=== PATIENT | male | born 1995 | race Two or more races ===

== ENCOUNTER 2017-01-14 02:04 | Emergency (ER) | payer MEDICAID ==
[~2017-01-14] VITALS: Ht 157.5 cm; Wt 102.1 kg
[~2017-01-14 02:04] MED LIST: BUDE0.253 NEB; DOXY-216 PO; DULO60CA PO; GABA-497 PO; HYDR-4663 PO; METO25TA5 PO; POTA10SO11 PO; SACC250C PO
[2017-01-14 02:53] LABS: Basophils # (auto) 0.1 uL; Basophils % (auto) 0.8 % (0.0-2.0); DEFINITIVE VIEW TRANSMISSION; Eosinophils # (auto) 0.2 uL; Eosinophils % (auto) 1.6 % (0.0-7.0); Hematocrit 44.7 % (41.0-53.0); Hemoglobin 14.8 g/dL (13.5-17.5); Lymphocytes # (auto) 2.8 uL; Lymphocytes % (auto) 25.2 % (10.0-50.0); Mean Corpuscular Hgb Conc. 33.1 g/dL (32.0-36.0); Mean Corpuscular Volume 75.7 fL (80.0-100.0); Monocytes # (auto) 0.4 uL; Neutrophils # (auto) 7.5 uL; Neutrophils % (auto) 68.4 % (37.0-80.0); Platelet Count (auto) 398 10^3/uL (140-450); Red Cell Distribution Width 17.6 % (11.6-16.0)
[2017-01-14 03:07] LABS: Partial Thromboplastin Time 28.5 sec (22.64-33.71); Prothrombin Time 10.9 sec (9.37-12.3)
[2017-01-14 03:11] LABS: Albumin 3.7 g/dL (3.4-5.0); BUN/Creatinine Ratio 43.5; Calcium 8.9 mg/dL (8.5-10.1); Magnesium 2.1 mg/dL (1.6-2.6); Potassium 4.1 mmol/L (3.5-5.1)
[2017-01-14 03:14] LABS: Bilirubin, Total 0.3 mg/dL (0.2-1.0); Total Protein 8.5 g/dL (6.4-8.2)
[2017-01-14 03:22] LABS: B-Type Natriuretic Peptide 7.6 pg/mL (0-100)
[2017-01-14 03:23] LABS: Temperature: 21.5 C (20.0-25.0)
[2017-01-14 04:40] VITALS: BP 87/51
[2017-01-14] MEDS ORDERED: ONDANSETRON HCL 4 MG/2 ML VIAL IV ONE (04:45)
[2017-01-14] MEDS ORDERED: MORPHINE SULFATE 4 MG/ML SYRG IV ONE (04:45)
== END 2017-01-14 06:16 | disposition home or self-care (01) ==
LOC: EDBD 02:04 → ER 02:14
DX: J06.9 Acute upper respiratory infection, unspecified (principal); R07.89 Other chest pain; G71.0 Muscular dystrophy; Z93.0 Tracheostomy status; I10 Essential (primary) hypertension; Z79.899 Other long term (current) drug therapy
CPT/HCPCS: 36415; 71010; 80053; 83605; 83735; 83880; 84443; 84484; 85025; 85610; 85730; 87070; 87077; 87186; 87205; 93005; 94002; 94761; 96374; 96375; 99285; J2270; J2405

== ENCOUNTER 2017-03-30 15:42 | Emergency (ER) | payer MEDICAID, OTHER ==
[~2017-03-30] VITALS: Ht 162.6 cm; Wt 90.7 kg
[~2017-03-30 15:42] MED LIST changes: +LEVO750T2 PO
[2017-03-30] MEDS ORDERED: SODIUM CHLORIDE 0.9% 1,000 ML IV ONE (17:11)
[2017-03-30 17:54] LABS: Basophils # (auto) 0.1 uL; Basophils % (auto) 0.4 % (0.0-2.0); CONDITION Y; DEFINITIVE SEE PRINTOUT; Eosinophils # (auto) 0.1 uL; Eosinophils % (auto) 1.1 % (0.0-7.0); Hematocrit 39.6 % (41.0-53.0); Lymphocytes # (auto) 1.5 uL; Lymphocytes % (auto) 11.9 % (10.0-50.0); Mean Corpuscular Hemoglobin 24.9 pg (28.0-32.0); Mean Corpuscular Hgb Conc. 32.9 g/dL (32.0-36.0); Mean Corpuscular Volume 75.6 fL (80.0-100.0); Monocytes # (auto) 0.5 uL; Monocytes % (auto) 3.8 % (0.0-12.0); Neutrophils # (auto) 10.5 uL; Neutrophils % (auto) 82.8 % (37.0-80.0); Platelet Count (auto) 368 10^3/uL (140-450); Red Cell Distribution Width 14.8 % (11.6-16.0); White Blood Cell 12.6 10^3/uL (4.4-10.8)
[2017-03-30 18:36] LABS: Alkaline Phosphatase 114 U/L (45-117); Anion Gap 15 (5-15); Aspartate Aminotransferase 21 U/L (15-37); Blood Urea Nitrogen 7 mg/dL (7-18); Calcium 8.8 mg/dL (8.5-10.1); Carbon Dioxide 17 mmol/L (21-32); Chloride 106 mmol/L (98-107); Glucose 69 mg/dL (74-106); Potassium 3.5 mmol/L (3.5-5.1); Sodium 138 mmol/L (136-145)
[2017-03-30 18:37] LABS: Albumin 3.6 g/dL (3.4-5.0); Bilirubin, Total 0.6 mg/dL (0.2-1.0); Magnesium 2.3 mg/dL (1.6-2.6)
[2017-03-30 18:41] LABS: GFR African American 1730 mL/min; GFR Non-African American 1429 mL/min
[2017-03-30] MEDS ORDERED: ACETAMINOPHEN 325 MG TAB PO ONE (18:45)
[2017-03-30] MEDS ORDERED: ALBUTEROL SULF 2.5 MG/0.5ML(0.5%) NEB SOLN NEB ONE (21:00)
[2017-03-30 22:30] VITALS: BP 137/86
== END 2017-03-30 23:02 | disposition home or self-care (01) ==
LOC: EDBD 15:42 → ER 15:45
DX: G71.0 Muscular dystrophy (principal); R06.02 Shortness of breath; R07.89 Other chest pain; Z90.49 Acquired absence of other specified parts of digestive tract; I10 Essential (primary) hypertension
CPT/HCPCS: 36415; 71010; 80053; 83735; 85025; 87070; 87077; 87186; 87205; 94002; 94640; 94761; 96360

== ENCOUNTER 2017-04-03 17:22 | Emergency (ER) | payer MEDICAID ==
[~2017-04-03] VITALS: Ht 170.2 cm; Wt 99.8 kg
[2017-04-03] MEDS ORDERED: ALBUTEROL SULF 2.5 MG/0.5ML(0.5%) NEB SOLN ONE (17:28)
[2017-04-03] MEDS ORDERED: IPRATROPIUM BROM 0.5 MG/2.5ML INH SOL ONE (17:28)
[2017-04-03] MEDS ORDERED: IPRATROPIUM BROM 0.5 MG/2.5ML INH SOL NEB ONE (17:30)
[2017-04-03] MEDS ORDERED: ALBUTEROL SULF 2.5 MG/0.5ML(0.5%) NEB SOLN NEB ONE (17:30)
[2017-04-03] MEDS ORDERED: SODIUM CHLORIDE 0.9% 1,000 ML IV ONE (19:30)
[2017-04-03] MEDS ORDERED: ONDANSETRON HCL 4 MG/2 ML VIAL IV ONE (19:30)
[2017-04-03] MEDS ORDERED: HYDROmorphone HCL 2 MG/ML VL IV ONE (19:30)
[2017-04-03] MEDS ORDERED: diphenhdrAMINE HCL 50 MG/1 ML VL IV ONE (20:15)
[2017-04-03 20:32] LABS: Basophils # (auto) 0.1 uL; Basophils % (auto) 0.6 % (0.0-2.0); CONDITION Y; DEFINITIVE SEE PRINTOUT; Eosinophils # (auto) 0.2 uL; Eosinophils % (auto) 1.5 % (0.0-7.0); Hematocrit 38.4 % (41.0-53.0); Hemoglobin 12.6 g/dL (13.5-17.5); Lymphocytes # (auto) 1.9 uL; Lymphocytes % (auto) 14.1 % (10.0-50.0); Mean Corpuscular Hemoglobin 24.6 pg (28.0-32.0); Mean Corpuscular Volume 74.8 fL (80.0-100.0); Monocytes # (auto) 0.4 uL; Monocytes % (auto) 3.1 % (0.0-12.0); Neutrophils # (auto) 10.6 uL; Neutrophils % (auto) 80.7 % (37.0-80.0); Platelet Count (auto) 377 10^3/uL (140-450); Red Cell Distribution Width 15.3 % (11.6-16.0); White Blood Cell 13.1 10^3/uL (4.4-10.8)
[2017-04-03 20:52] LABS: Albumin 3.5 g/dL (3.4-5.0); Alkaline Phosphatase 100 U/L (45-117); Anion Gap 11 (5-15); Aspartate Aminotransferase 24 U/L (15-37); Bilirubin, Total 0.2 mg/dL (0.2-1.0); Blood Urea Nitrogen 6 mg/dL (7-18); Carbon Dioxide 22 mmol/L (21-32); Chloride 106 mmol/L (98-107); Glucose 76 mg/dL (74-106); Potassium 4.1 mmol/L (3.5-5.1); Sodium 139 mmol/L (136-145); Total Protein 7.3 g/dL (6.4-8.2)
[2017-04-03 20:55] LABS: GFR African American 1730 mL/min; GFR Non-African American 1429 mL/min
[2017-04-04 01:21] VITALS: BP 120/67
[2017-04-04] MEDS ORDERED: HYDROmorphone HCL 2 MG/ML VL IV ONE (01:45)
[2017-04-04 04:35] VITALS: BP 127/60
== END 2017-04-04 00:41 | disposition home or self-care (01) ==
LOC: EDBD 17:22 → ER 17:25
DX: R07.89 Other chest pain (principal); J06.9 Acute upper respiratory infection, unspecified; I10 Essential (primary) hypertension; G71.0 Muscular dystrophy
CPT/HCPCS: 36415; 71010; 80053; 85025; 94002; 94640; 96361; 96374; 96375; 96376; 99285; J1170; J1200; J2405

== ENCOUNTER 2017-09-13 09:19 | Inpatient (IN) | payer MEDICAID ==
[2017-09-13] VITALS (7 sets, daily range): BP systolic 78–121; BP diastolic 44–84
[~2017-09-13] VITALS: Ht 165.1 cm; Wt 108.7 kg
[~2017-09-13 09:19] MED LIST changes: -GABA-497 PO; +GABA300C10 PO; -HYDR-4663 PO; +HYDR-4683 PO
[2017-09-13 09:54] LABS: Eosinophils # (auto) 0.1 uL; Hematocrit 48.2 % (41.0-53.0); Monocytes # (auto) 1.4 uL; Monocytes % (auto) 11.5 % (0.0-12.0); Nucleated Red Blood Cells % 0.2 %; Red Cell Distribution Width 15.6 % (11.8-14.3)
[2017-09-13 09:56] LABS: Basophils # (auto) 0.1 uL; Basophils % (auto) 0.7 % (0.0-2.0); Eosinophils % (auto) 0.7 % (0.0-7.0); Hemoglobin 15.5 g/dL (13.5-17.5); Lymphocytes # (auto) 2.4 uL; Lymphocytes % (auto) 19.5 % (10.0-50.0); Mean Corpuscular Hemoglobin 23.2 pg (28.0-32.0); Mean Corpuscular Hgb Conc. 32.1 g/dL (32.0-36.0); Mean Corpuscular Volume 72.4 fL (80.0-100.0); Neutrophils # (auto) 8.2 uL; Neutrophils % (auto) 67.6 % (37.0-80.0); Platelet Count (auto) 450 10^3/uL (140-450); Red Blood Cells 6.65 10^6/uL (4.5-5.90); White Blood Cell 12.2 10^3/uL (4.4-10.8)
[2017-09-13 10:23] LABS: Albumin 3.7 g/dL (3.4-5.0); BUN/Creatinine Ratio 13.8; Bilirubin, Total 0.7 mg/dL (0.2-1.0); Calcium 9.2 mg/dL (8.5-10.1); Total Protein 8.2 g/dL (6.4-8.2)
[2017-09-13 10:25] LABS: Potassium 2.2 mmol/L (3.5-5.1)
[2017-09-13] MEDS ORDERED: SODIUM CHLORIDE 0.9% 1,000 ML IV ONE (10:42)
[2017-09-13] MEDS ORDERED: MORPHINE SULFATE 4 MG/ML SYR/VIAL IV ONE (10:45)
[2017-09-13] MEDS ORDERED: ONDANSETRON HCL 4 MG/2 ML VIAL IV ONE (10:45)
[2017-09-13] MEDS ORDERED: POTASSIUM CHL 10% (20 MEQ/15ML) 15ml ORAL SOLN PO ONE (10:45)
[2017-09-13] MEDS ORDERED: LACTULOSE 20Gm/30ML SOLN PO PRN (15:30)
[2017-09-13] MEDS ORDERED: NITROGLYCERIN 0.4 MG SL TAB SL PRN (15:30)
[2017-09-13] MEDS ORDERED: MORPHINE SULFATE 4 MG/ML SYR/VIAL IV PRN (15:30)
[2017-09-13] MEDS ORDERED: TEMAZEPAM 15 MG CAP PO PRN (15:30)
[2017-09-13] MEDS ORDERED: OSELTAMIVIR 75 MG CAP PO ONE (15:30)
[2017-09-13] MEDS ORDERED: ACETAMINOPHEN 500 MG TAB PO PRN (15:30)
[2017-09-13] MEDS ORDERED: LORazepam 0.5 MG TAB PO PRN (15:30)
[2017-09-13] MEDS ORDERED: AZITHROMYCIN 500MG/ 250ML 250 ML IV SCH ×2 (15:45→16:00)
[2017-09-13] MEDS: ENOXAPARIN SOD 40 MG/0.4 ML SYRINGE SC SCH (17:01)
[2017-09-13] MEDS: POTASSIUM CHL 20MEQ/100ML 100 ML IV SCH ×3 (17:01→21:18)
[2017-09-13] MEDS: cefTRIAXone 1GM/10ml IVPUSH 10 ML IV SCH (17:01)
[2017-09-13] MEDS: SOD CHL 0.9%/ KCL 40MEQ 1,000 ML IV SCH (17:01)
[2017-09-13] MEDS: AZITHROMYCIN 500MG/ 250ML 250 ML IV SCH (17:02)
[2017-09-13] MEDS: MORPHINE SULFATE 4 MG/ML SYR/VIAL IV PRN ×2 (17:19→22:31)
[2017-09-13 18:22] LABS: Urine Bacteria NONE SEEN /hpf (None Seen); Urine Blood Negative /uL (Negative); Urine Mucus FEW (None Seen); Urine Specific Gravity 1.015 (1.001-1.035); Urine WBC 1 /hpf (0 - 3)
[2017-09-13] MEDS: ALBUTEROL SULF 2.5 MG/0.5ML(0.5%) NEB SOLN NEB SCH (18:40)
[2017-09-13] MEDS: OSELTAMIVIR 75 MG CAP PO SCH (20:21)
[2017-09-13] MEDS: ALBUTEROL SULF 2.5 MG/0.5ML(0.5%) NEB SOLN NEB PRN (22:41)
[2017-09-14] VITALS (12 sets, daily range): BP systolic 81–135; BP diastolic 35–92
[2017-09-14] MEDS: POTASSIUM CHL 20MEQ/100ML 100 ML IV SCH (00:15)
[2017-09-14] MEDS: ALBUTEROL SULF 2.5 MG/0.5ML(0.5%) NEB SOLN NEB SCH ×4 (00:34→18:00)
[2017-09-14] MEDS: SOD CHL 0.9%/ KCL 40MEQ 1,000 ML IV SCH ×2 (05:13→18:33)
[2017-09-14] MEDS: MORPHINE SULFATE 4 MG/ML SYR/VIAL IV PRN ×4 (05:14→21:23)
[2017-09-14 06:00] LABS: Basophils # (auto) 0.1 uL; Eosinophils # (auto) 0.2 uL; Hemoglobin 11.4 g/dL (13.5-17.5); Mean Corpuscular Hemoglobin 23.2 pg (28.0-32.0); Monocytes # (auto) 0.7 uL; Neutrophils # (auto) 3.3 uL; Nucleated Red Blood Cells % 0.3 %
[2017-09-14 06:05] LABS: Basophils % (auto) 0.8 % (0.0-2.0); Eosinophils % (auto) 2.9 % (0.0-7.0); Lymphocytes # (auto) 2.5 uL; Lymphocytes % (auto) 36.7 % (10.0-50.0); Mean Corpuscular Hgb Conc. 32.7 g/dL (32.0-36.0); Monocytes % (auto) 10.1 % (0.0-12.0); Neutrophils % (auto) 49.5 % (37.0-80.0); Platelet Count (auto) 379 10^3/uL (140-450); Red Blood Cells 4.93 10^6/uL (4.5-5.90); Red Cell Distribution Width 15.2 % (11.8-14.3); White Blood Cell 6.7 10^3/uL (4.4-10.8)
[2017-09-14 07:40] LABS: Alanine Aminotransferase 32 U/L (16-61); Albumin 2.8 g/dL (3.4-5.0); Alkaline Phosphatase 82 U/L (45-117); Anion Gap 11 (5-15); Aspartate Aminotransferase 28 U/L (15-37); Bilirubin, Total 0.5 mg/dL (0.2-1.0); Blood Urea Nitrogen < 1 mg/dL (7-18); Calcium 7.8 mg/dL (8.5-10.1); Carbon Dioxide 20 mmol/L (21-32); Chloride 110 mmol/L (98-107); Glucose 78 mg/dL (74-106); Sodium 141 mmol/L (136-145); Total Protein 5.7 g/dL (6.4-8.2)
[2017-09-14 08:00] LABS: GFR African American 121 mL/min; GFR Non-African American 100 mL/min
[2017-09-14] MEDS: AZITHROMYCIN 500MG/ 250ML 250 ML IV SCH ×2 (10:00→11:00)
[2017-09-14] MEDS: OSELTAMIVIR 75 MG CAP PO SCH ×2 (10:00→22:00)
[2017-09-14] MEDS: cefTRIAXone 1GM/10ml IVPUSH 10 ML IV SCH (10:00)
[2017-09-14] MEDS: ENOXAPARIN SOD 40 MG/0.4 ML SYRINGE SC SCH (10:00)
[2017-09-14] MEDS: PROMETHAZINE HCL 25 MG/ML 1ML IV PRN ×2 (10:22→17:14)
[2017-09-15] VITALS (11 sets, daily range): BP systolic 82–128; BP diastolic 26–74
[2017-09-15] MEDS: ALBUTEROL SULF 2.5 MG/0.5ML(0.5%) NEB SOLN NEB SCH ×3 (06:00→19:13)
[2017-09-15] MEDS: SOD CHL 0.9%/ KCL 40MEQ 1,000 ML IV SCH (07:36)
[2017-09-15] MEDS: cefTRIAXone 1GM/10ml IVPUSH 10 ML IV SCH (09:05)
[2017-09-15] MEDS: ENOXAPARIN SOD 40 MG/0.4 ML SYRINGE SC SCH ×2 (09:55→09:58)
[2017-09-15] MEDS: AZITHROMYCIN 500MG/ 250ML 250 ML IV SCH (10:45)
[2017-09-15] MEDS: MORPHINE SULFATE 4 MG/ML SYR/VIAL IV PRN ×2 (11:14→20:25)
[2017-09-15] MEDS: PROMETHAZINE HCL 25 MG/ML 1ML IV PRN (20:25)
[2017-09-16] VITALS (12 sets, daily range): BP systolic 105–160; BP diastolic 47–93
[2017-09-16] MEDS: SOD CHL 0.9%/ KCL 40MEQ 1,000 ML IV SCH ×2 (00:25→15:18)
[2017-09-16] MEDS: ALBUTEROL SULF 2.5 MG/0.5ML(0.5%) NEB SOLN NEB SCH ×5 (00:34→22:00)
[2017-09-16] MEDS: MORPHINE SULFATE 4 MG/ML SYR/VIAL IV PRN ×4 (01:52→20:49)
[2017-09-16] MEDS: ALBUTEROL SULF 2.5 MG/0.5ML(0.5%) NEB SOLN NEB PRN (04:03)
[2017-09-16] MEDS: cefTRIAXone 1GM/10ml IVPUSH 10 ML IV SCH (09:46)
[2017-09-16] MEDS: AZITHROMYCIN 500MG/ 250ML 250 ML IV SCH (09:46)
[2017-09-16] MEDS: ENOXAPARIN SOD 40 MG/0.4 ML SYRINGE SC SCH (09:47)
[2017-09-16] MEDS: ACETYLCYSTEINE 20%(200MG/ML) SOL 4ML NEB SCH ×2 (18:30→22:00)
[2017-09-16] MEDS: BUDESONIDE (INHALATION) 0.5 MG/2 ML NEB NEB SCH (22:00)
[2017-09-17] VITALS (9 sets, daily range): BP systolic 104–148; BP diastolic 58–94
[2017-09-17] MEDS: SOD CHL 0.9%/ KCL 40MEQ 1,000 ML IV SCH (04:41)
[2017-09-17] MEDS: MORPHINE SULFATE 4 MG/ML SYR/VIAL IV PRN ×3 (04:42→17:08)
[2017-09-17] MEDS: ACETYLCYSTEINE 20%(200MG/ML) SOL 4ML NEB SCH ×4 (06:42→22:27)
[2017-09-17] MEDS: ALBUTEROL SULF 2.5 MG/0.5ML(0.5%) NEB SOLN NEB SCH ×4 (06:42→22:27)
[2017-09-17 08:15] LABS: Basophils # (auto) 0.1 uL; Eosinophils # (auto) 0.4 uL; Hemoglobin 11.7 g/dL (13.5-17.5); Monocytes # (auto) 0.5 uL; Neutrophils # (auto) 3.7 uL
[2017-09-17 08:17] LABS: Eosinophils % (auto) 5.9 % (0.0-7.0); Hematocrit 36.6 % (41.0-53.0); Lymphocytes # (auto) 2.3 uL; Lymphocytes % (auto) 33.1 % (10.0-50.0); Mean Corpuscular Hemoglobin 23.1 pg (28.0-32.0); Mean Corpuscular Volume 72.4 fL (80.0-100.0); Monocytes % (auto) 6.5 % (0.0-12.0); Neutrophils % (auto) 53.5 % (37.0-80.0); Nucleated Red Blood Cells % 0.1 %; Platelet Count (auto) 334 10^3/uL (140-450); Red Blood Cells 5.06 10^6/uL (4.5-5.90); Red Cell Distribution Width 15.5 % (11.8-14.3)
[2017-09-17 08:25] LABS: Alanine Aminotransferase 31 U/L (16-61); Anion Gap 8 (5-15); Aspartate Aminotransferase 17 U/L (15-37); BUN/Creatinine Ratio 46.7; Blood Urea Nitrogen 7 mg/dL (7-18); Calcium 8.7 mg/dL (8.5-10.1); Carbon Dioxide 24 mmol/L (21-32); Chloride 105 mmol/L (98-107); GFR African American 1083 mL/min; GFR Non-African American 895 mL/min; Glucose 91 mg/dL (74-106); Potassium 4.2 mmol/L (3.5-5.1); Sodium 137 mmol/L (136-145)
[2017-09-17 08:28] LABS: Alkaline Phosphatase 85 U/L (45-117); Bilirubin, Total 0.2 mg/dL (0.2-1.0); Total Protein 6.3 g/dL (6.4-8.2)
[2017-09-17] MEDS: ENOXAPARIN SOD 40 MG/0.4 ML SYRINGE SC SCH ×2 (10:00→10:26)
[2017-09-17] MEDS: cefTRIAXone 1GM/10ml IVPUSH 10 ML IV SCH (10:25)
[2017-09-17] MEDS: BUDESONIDE (INHALATION) 0.5 MG/2 ML NEB NEB SCH ×2 (10:26→19:40)
[2017-09-17] MEDS: AZITHROMYCIN 500MG/ 250ML 250 ML IV SCH (10:26)
[2017-09-17 12:36] LABS: Basophils # (auto) 0.1 uL; Basophils % (auto) 1.1 % (0.0-2.0); Eosinophils # (auto) 0.5 uL; Eosinophils % (auto) 6.9 % (0.0-7.0); Lymphocytes # (auto) 2.2 uL; Monocytes # (auto) 0.3 uL
[2017-09-17 12:37] LABS: Hematocrit 38.6 % (41.0-53.0); Hemoglobin 12.4 g/dL (13.5-17.5); Lymphocytes % (auto) 33.5 % (10.0-50.0); Mean Corpuscular Hemoglobin 23.2 pg (28.0-32.0); Mean Corpuscular Volume 72.4 fL (80.0-100.0); Monocytes % (auto) 4.7 % (0.0-12.0); Neutrophils # (auto) 3.6 uL; Neutrophils % (auto) 53.8 % (37.0-80.0); Nucleated Red Blood Cells % 0.1 %; Platelet Count (auto) 363 10^3/uL (140-450); Red Blood Cells 5.33 10^6/uL (4.5-5.90); Red Cell Distribution Width 15.3 % (11.8-14.3); White Blood Cell 6.7 10^3/uL (4.4-10.8)
[2017-09-17 12:52] LABS: Anion Gap 7 (5-15); Blood Urea Nitrogen 5 mg/dL (7-18); Calcium 8.7 mg/dL (8.5-10.1); Carbon Dioxide 27 mmol/L (21-32); Chloride 105 mmol/L (98-107); Glucose 118 mg/dL (74-106); Potassium 3.9 mmol/L (3.5-5.1); Sodium 139 mmol/L (136-145)
[2017-09-17 13:11] LABS: GFR African American 1083 mL/min; GFR Non-African American 895 mL/min
[2017-09-17] MEDS: PRO-STAT 64 30ML PO SCH (18:00)
[2017-09-18] MEDS: MORPHINE SULFATE 4 MG/ML SYR/VIAL IV PRN ×6 (00:01→23:02)
[2017-09-18] MEDS: ALBUTEROL SULF 2.5 MG/0.5ML(0.5%) NEB SOLN NEB SCH ×6 (02:00→22:19)
[2017-09-18 05:00] VITALS: BP 107/56
[2017-09-18] MEDS: ACETYLCYSTEINE 20%(200MG/ML) SOL 4ML NEB SCH ×6 (06:00→22:19)
[2017-09-18] MEDS: BUDESONIDE (INHALATION) 0.5 MG/2 ML NEB NEB SCH ×2 (06:35→22:19)
[2017-09-18] MEDS: ENOXAPARIN SOD 40 MG/0.4 ML SYRINGE SC SCH (08:46)
[2017-09-18] MEDS: cefTRIAXone 1GM/10ml IVPUSH 10 ML IV SCH (08:46)
[2017-09-18] MEDS: AZITHROMYCIN 500MG/ 250ML 250 ML IV SCH (08:46)
[2017-09-18] MEDS: PRO-STAT 64 30ML PO SCH ×2 (08:47→18:06)
[2017-09-18 09:29] VITALS: BP 126/75
[2017-09-18 12:56] VITALS: BP 123/82
[2017-09-18 16:43] VITALS: BP 119/83
[2017-09-18] MEDS: MEROPENEM 1gm/20ml IVPUSH 20 ML IV SCH ×2 (17:15→22:00)
[2017-09-18] MEDS: PROMETHAZINE HCL 25 MG/ML 1ML IV PRN (20:07)
[2017-09-18 22:00] VITALS: BP 148/69
[2017-09-19] MEDS: ACETYLCYSTEINE 20%(200MG/ML) SOL 4ML NEB SCH ×6 (02:17→22:17)
[2017-09-19] MEDS: ALBUTEROL SULF 2.5 MG/0.5ML(0.5%) NEB SOLN NEB SCH ×6 (02:17→22:17)
[2017-09-19] MEDS: MORPHINE SULFATE 4 MG/ML SYR/VIAL IV PRN ×4 (04:57→19:53)
[2017-09-19 05:00] VITALS: BP 100/65
[2017-09-19] MEDS: MEROPENEM 1gm/20ml IVPUSH 20 ML IV SCH ×3 (07:55→22:17)
[2017-09-19] MEDS: ENOXAPARIN SOD 40 MG/0.4 ML SYRINGE SC SCH (07:56)
[2017-09-19] MEDS: PRO-STAT 64 30ML PO SCH ×2 (07:56→18:00)
[2017-09-19] MEDS: PROMETHAZINE HCL 25 MG/ML 1ML IV PRN ×2 (08:10→16:05)
[2017-09-19 09:00] VITALS: BP 146/88
[2017-09-19] MEDS: BUDESONIDE (INHALATION) 0.5 MG/2 ML NEB NEB SCH ×2 (10:32→22:17)
[2017-09-19 13:00] VITALS: BP 120/73
[2017-09-19 17:55] VITALS: BP 111/73
[2017-09-19 22:00] VITALS: BP 121/74
[2017-09-19] MEDS: ASCORBIC ACID 500 MG TAB PO SCH (22:17)
[2017-09-20] MEDS: MORPHINE SULFATE 4 MG/ML SYR/VIAL IV PRN ×5 (00:03→18:41)
[2017-09-20] MEDS: ALBUTEROL SULF 2.5 MG/0.5ML(0.5%) NEB SOLN NEB SCH ×6 (02:07→22:00)
[2017-09-20] MEDS: ACETYLCYSTEINE 20%(200MG/ML) SOL 4ML NEB SCH ×6 (02:07→21:59)
[2017-09-20 05:00] VITALS: BP 120/78
[2017-09-20] MEDS: MEROPENEM 1gm/20ml IVPUSH 20 ML IV SCH ×3 (06:36→22:00)
[2017-09-20] MEDS: PROMETHAZINE HCL 25 MG/ML 1ML IV PRN ×2 (06:49→14:02)
[2017-09-20] MEDS: BUDESONIDE (INHALATION) 0.5 MG/2 ML NEB NEB SCH ×2 (07:25→21:59)
[2017-09-20 08:43] VITALS: BP 145/99
[2017-09-20] MEDS: ENOXAPARIN SOD 40 MG/0.4 ML SYRINGE SC SCH (10:00)
[2017-09-20] MEDS: PRO-STAT 64 30ML PO SCH ×2 (10:27→18:00)
[2017-09-20] MEDS: ASCORBIC ACID 500 MG TAB PO SCH ×2 (10:27→22:18)
[2017-09-20] MEDS: MULTIPLE VITAMINS W/ MINERALS TAB PO SCH (10:27)
[2017-09-20] MEDS ORDERED: GABA300C10 PO (11:48)
[2017-09-20] MEDS ORDERED: METO25TA5 PO (11:48)
[2017-09-20] MEDS ORDERED: POTA10TA34 PO (11:48)
[2017-09-20] MEDS ORDERED: HYDR-4683 PO (11:48)
[2017-09-20] MEDS ORDERED: DOXY100C2 PO (11:48)
[2017-09-20 11:53] VITALS: BP 121/80
[2017-09-20 16:40] VITALS: BP 111/76
[2017-09-20 20:00] VITALS: BP 103/48
[2017-09-20 22:00] VITALS: BP 103/48
[2017-09-21] VITALS (7 sets, daily range): BP systolic 107–118; BP diastolic 61–79
[2017-09-21] MEDS ORDERED: GENTAMICIN IV ONE (00:15)
[2017-09-21] MEDS: ALBUTEROL SULF 2.5 MG/0.5ML(0.5%) NEB SOLN NEB SCH ×6 (02:45→22:39)
[2017-09-21] MEDS: ACETYLCYSTEINE 20%(200MG/ML) SOL 4ML NEB SCH ×6 (02:45→22:40)
[2017-09-21] MEDS: MORPHINE SULFATE 4 MG/ML SYR/VIAL IV PRN ×5 (02:47→21:56)
[2017-09-21 05:25] LABS: Basophils # (auto) 0.1 uL; Basophils % (auto) 0.9 % (0.0-2.0); Hemoglobin 12.1 g/dL (13.5-17.5); Lymphocytes # (auto) 1.6 uL; Neutrophils # (auto) 5.6 uL
[2017-09-21 05:27] LABS: Eosinophils # (auto) 0.1 uL; Eosinophils % (auto) 1.6 % (0.0-7.0); Hematocrit 37.8 % (41.0-53.0); Lymphocytes % (auto) 20.6 % (10.0-50.0); Mean Corpuscular Hemoglobin 23.7 pg (28.0-32.0); Mean Corpuscular Hgb Conc. 32.1 g/dL (32.0-36.0); Monocytes # (auto) 0.4 uL; Monocytes % (auto) 5.6 % (0.0-12.0); Neutrophils % (auto) 71.3 % (37.0-80.0); Nucleated Red Blood Cells % 0.3 %; Red Blood Cells 5.11 10^6/uL (4.5-5.90); Red Cell Distribution Width 16.1 % (11.8-14.3); White Blood Cell 7.9 10^3/uL (4.4-10.8)
[2017-09-21 05:29] LABS: Platelet Count (auto) 214 10^3/uL (140-450)
[2017-09-21] MEDS: BUDESONIDE (INHALATION) 0.5 MG/2 ML NEB NEB SCH ×2 (05:37→22:40)
[2017-09-21 05:41] LABS: Alanine Aminotransferase 60 U/L (16-61); Albumin 2.9 g/dL (3.4-5.0); Alkaline Phosphatase 100 U/L (45-117); Anion Gap 9 (5-15); Aspartate Aminotransferase 29 U/L (15-37); BUN/Creatinine Ratio 53.3; Bilirubin, Total 0.2 mg/dL (0.2-1.0); Blood Urea Nitrogen 8 mg/dL (7-18); Calcium 8.1 mg/dL (8.5-10.1); Carbon Dioxide 24 mmol/L (21-32); Chloride 107 mmol/L (98-107); GFR African American 1083 mL/min; GFR Non-African American 895 mL/min; Glucose 103 mg/dL (74-106); Sodium 140 mmol/L (136-145); Total Protein 6.5 g/dL (6.4-8.2)
[2017-09-21] MEDS: PRO-STAT 64 30ML PO SCH ×2 (07:04→17:26)
[2017-09-21] MEDS ORDERED: GENTAMICIN SULFATE 400 MG in D5W 5% 100 ML IV ONE (09:00)
[2017-09-21] MEDS: MULTIPLE VITAMINS W/ MINERALS TAB PO SCH (09:28)
[2017-09-21] MEDS: ASCORBIC ACID 500 MG TAB PO SCH ×2 (09:28→21:57)
[2017-09-21] MEDS: ENOXAPARIN SOD 40 MG/0.4 ML SYRINGE SC SCH ×2 (09:28→09:32)
[2017-09-21] MEDS ORDERED: GENTAMICIN IV SCH (10:00)
[2017-09-21] MEDS ORDERED: LEVOFLOXACIN 500 MG TAB PO ONE (11:45)
[2017-09-21] MEDS ORDERED: METOPROLOL TARTRATE 25 MG TAB PO ONE (14:45)
[2017-09-21] MEDS: METOPROLOL TARTRATE 25 MG TAB PO SCH (21:56)
[2017-09-22] VITALS (9 sets, daily range): BP systolic 93–117; BP diastolic 58–74
[2017-09-22] MEDS: ALBUTEROL SULF 2.5 MG/0.5ML(0.5%) NEB SOLN NEB SCH ×6 (02:19→22:46)
[2017-09-22] MEDS: ACETYLCYSTEINE 20%(200MG/ML) SOL 4ML NEB SCH ×6 (02:19→22:46)
[2017-09-22] MEDS: MORPHINE SULFATE 4 MG/ML SYR/VIAL IV PRN ×5 (02:37→21:10)
[2017-09-22] MEDS: PRO-STAT 64 30ML PO SCH ×2 (08:00→17:25)
[2017-09-22] MEDS: METOPROLOL TARTRATE 25 MG TAB PO SCH ×2 (10:00→21:57)
[2017-09-22] MEDS: ENOXAPARIN SOD 40 MG/0.4 ML SYRINGE SC SCH (10:00)
[2017-09-22] MEDS: LEVOFLOXACIN 500 MG TAB PO SCH (10:03)
[2017-09-22] MEDS: MULTIPLE VITAMINS W/ MINERALS TAB PO SCH (10:03)
[2017-09-22] MEDS: ASCORBIC ACID 500 MG TAB PO SCH ×2 (10:03→21:58)
[2017-09-22] MEDS: BUDESONIDE (INHALATION) 0.5 MG/2 ML NEB NEB SCH ×2 (10:04→22:47)
[2017-09-22] MEDS ORDERED: GENTAMICIN PER PHARMACY 0 ML IV SCH (16:15)
[2017-09-22] MEDS: GENTAMICIN SULFATE 400 MG in D5W 5% 100 ML IV SCH (17:54)
[2017-09-23] MEDS: MORPHINE SULFATE 4 MG/ML SYR/VIAL IV PRN ×6 (01:43→20:41)
[2017-09-23] MEDS: ALBUTEROL SULF 2.5 MG/0.5ML(0.5%) NEB SOLN NEB SCH ×6 (02:55→22:41)
[2017-09-23] MEDS: ACETYLCYSTEINE 20%(200MG/ML) SOL 4ML NEB SCH ×6 (02:56→22:40)
[2017-09-23 04:54] VITALS: BP 98/65
[2017-09-23] MEDS: BUDESONIDE (INHALATION) 0.5 MG/2 ML NEB NEB SCH ×2 (06:05→18:57)
[2017-09-23] MEDS: PRO-STAT 64 30ML PO SCH ×2 (07:44→17:19)
[2017-09-23] MEDS: LEVOFLOXACIN 500 MG TAB PO SCH (08:44)
[2017-09-23] MEDS: MULTIPLE VITAMINS W/ MINERALS TAB PO SCH (08:44)
[2017-09-23] MEDS: ASCORBIC ACID 500 MG TAB PO SCH ×2 (08:44→20:41)
[2017-09-23] MEDS: METOPROLOL TARTRATE 25 MG TAB PO SCH ×2 (08:45→20:42)
[2017-09-23 09:05] VITALS: BP 126/64
[2017-09-23] MEDS: ENOXAPARIN SOD 40 MG/0.4 ML SYRINGE SC SCH (10:00)
[2017-09-23] MEDS: GENTAMICIN SULFATE 400 MG in D5W 5% 100 ML IV SCH (10:09)
[2017-09-23 13:00] VITALS: BP 130/62
[2017-09-23 16:27] VITALS: BP 128/66
[2017-09-23 20:00] VITALS: BP 105/56
[2017-09-23 21:45] VITALS: BP 105/56
[2017-09-24] MEDS: MORPHINE SULFATE 4 MG/ML SYR/VIAL IV PRN ×5 (00:44→20:53)
[2017-09-24] MEDS: ALBUTEROL SULF 2.5 MG/0.5ML(0.5%) NEB SOLN NEB SCH ×6 (02:35→21:48)
[2017-09-24] MEDS: ACETYLCYSTEINE 20%(200MG/ML) SOL 4ML NEB SCH ×6 (02:35→21:48)
[2017-09-24 04:57] VITALS: BP 108/65
[2017-09-24 05:43] LABS: Basophils # (auto) 0 uL; Eosinophils # (auto) 0.2 uL; Lymphocytes # (auto) 2.1 uL; Mean Corpuscular Volume 73.8 fL (80.0-100.0); Nucleated Red Blood Cells % 0.1 %; Red Cell Distribution Width 16.2 % (11.8-14.3)
[2017-09-24 05:46] LABS: Basophils % (auto) 0.7 % (0.0-2.0); Eosinophils % (auto) 3.1 % (0.0-7.0); Hematocrit 35.7 % (41.0-53.0); Hemoglobin 11.4 g/dL (13.5-17.5); Lymphocytes % (auto) 29.4 % (10.0-50.0); Mean Corpuscular Hemoglobin 23.6 pg (28.0-32.0); Monocytes # (auto) 0.6 uL; Monocytes % (auto) 8.5 % (0.0-12.0); Neutrophils # (auto) 4.1 uL; Neutrophils % (auto) 58.3 % (37.0-80.0); Platelet Count (auto) 283 10^3/uL (140-450); Red Blood Cells 4.84 10^6/uL (4.5-5.90)
[2017-09-24 05:57] LABS: Calcium 8.4 mg/dL (8.5-10.1); Chloride 105 mmol/L (98-107); Potassium 4.1 mmol/L (3.5-5.1); Sodium 137 mmol/L (136-145)
[2017-09-24 06:01] LABS: Alanine Aminotransferase 46 U/L (16-61); Albumin 2.9 g/dL (3.4-5.0); Anion Gap 3 (5-15); Aspartate Aminotransferase 24 U/L (15-37); BUN/Creatinine Ratio 53.3; Blood Urea Nitrogen 8 mg/dL (7-18); Carbon Dioxide 29 mmol/L (21-32); GFR African American 1083 mL/min; GFR Non-African American 895 mL/min; Glucose 101 mg/dL (74-106)
[2017-09-24 06:04] LABS: Alkaline Phosphatase 94 U/L (45-117); Bilirubin, Total 0.1 mg/dL (0.2-1.0); Total Protein 6.4 g/dL (6.4-8.2)
[2017-09-24 09:39] VITALS: BP 110/68
[2017-09-24] MEDS ORDERED: ACETYLCYSTEINE 10 %(100MG/ML) SOL 4ML ONE (09:55)
[2017-09-24] MEDS: PRO-STAT 64 30ML PO SCH ×2 (09:59→22:26)
[2017-09-24] MEDS: ENOXAPARIN SOD 40 MG/0.4 ML SYRINGE SC SCH ×2 (10:00→10:07)
[2017-09-24] MEDS: MULTIPLE VITAMINS W/ MINERALS TAB PO SCH (10:05)
[2017-09-24] MEDS: LEVOFLOXACIN 500 MG TAB PO SCH (10:05)
[2017-09-24] MEDS: METOPROLOL TARTRATE 25 MG TAB PO SCH ×2 (10:06→22:25)
[2017-09-24] MEDS: ASCORBIC ACID 500 MG TAB PO SCH ×2 (10:06→22:24)
[2017-09-24] MEDS: BUDESONIDE (INHALATION) 0.5 MG/2 ML NEB NEB SCH ×2 (10:12→21:48)
[2017-09-24] MEDS: GENTAMICIN SULFATE 400 MG in D5W 5% 100 ML IV SCH (12:05)
[2017-09-24 13:00] VITALS: BP 104/69
[2017-09-24 16:07] VITALS: BP 115/74
[2017-09-24 20:56] VITALS: BP 115/74
[2017-09-24 22:00] VITALS: BP 115/56
[2017-09-25] MEDS: MORPHINE SULFATE 4 MG/ML SYR/VIAL IV PRN ×4 (01:02→14:15)
[2017-09-25] MEDS: ACETYLCYSTEINE 20%(200MG/ML) SOL 4ML NEB SCH ×5 (01:51→18:15)
[2017-09-25] MEDS: ALBUTEROL SULF 2.5 MG/0.5ML(0.5%) NEB SOLN NEB SCH ×5 (01:52→18:14)
[2017-09-25 05:30] VITALS: BP 101/63
[2017-09-25] MEDS ORDERED: ACETYLCYSTEINE 10 %(100MG/ML) SOL 4ML ONE ×2 (05:40→18:09)
[2017-09-25] MEDS: BUDESONIDE (INHALATION) 0.5 MG/2 ML NEB NEB SCH ×2 (06:02→18:15)
[2017-09-25] MEDS: PRO-STAT 64 30ML PO SCH ×2 (08:00→18:01)
[2017-09-25 09:07] VITALS: BP 110/73
[2017-09-25] MEDS: MULTIPLE VITAMINS W/ MINERALS TAB PO SCH (09:19)
[2017-09-25] MEDS: LEVOFLOXACIN 500 MG TAB PO SCH (09:19)
[2017-09-25] MEDS: ASCORBIC ACID 500 MG TAB PO SCH (09:19)
[2017-09-25] MEDS: METOPROLOL TARTRATE 25 MG TAB PO SCH (09:20)
[2017-09-25] MEDS: ENOXAPARIN SOD 40 MG/0.4 ML SYRINGE SC SCH (09:20)
[2017-09-25] MEDS: GENTAMICIN SULFATE 400 MG in D5W 5% 100 ML IV SCH (12:03)
[2017-09-25 12:15] VITALS: BP 106/62
[2017-09-25 13:53] VITALS: BP 124/71
[2017-09-25 14:40] VITALS: BP 106/62
== END 2017-09-25 19:25 | disposition home or self-care (01) | DRG 130 ==
LOC: EDBD 09:19 → ER 09:19 → MERGE 09:20 → OVERFLOW 09:20 → DOU IN ICU 09-16 07:46 → CENTRAL 09-17 18:02
PROVIDERS: ADMIT Internal Medicine; ATTEND Internal Medicine
PROC: 5A1955Z Respiratory Ventilation, Greater than 96 Consecutive Hours (ICD-10-PCS; principal; 2017-09-13)
DX: J95.03 Malfunction of tracheostomy stoma (principal); J15.0 Pneumonia due to Klebsiella pneumoniae; J96.20 Acute and chronic respiratory failure, unspecified whether with hypoxia or hypercapnia; A41.9 Sepsis, unspecified organism; G71.0 Muscular dystrophy; J84.10 Pulmonary fibrosis, unspecified; K76.0 Fatty (change of) liver, not elsewhere classified; Z99.11 Dependence on respirator [ventilator] status; J20.9 Acute bronchitis, unspecified; E87.6 Hypokalemia; E88.09 Other disorders of plasma-protein metabolism, not elsewhere classified; F41.9 Anxiety disorder, unspecified; I10 Essential (primary) hypertension; Z82.49 Family history of ischemic heart disease and other diseases of the circulatory system; Z83.3 Family history of diabetes mellitus
CPT/HCPCS: 36415; 71045; 80048; 80053; 80170; 81001; 81002; 83735; 84484; 85025; 85379; 87070; 87077; 87081; 87186; 87205; 87804; 93005; 94002; 94003; 94640; 94761; 96361; 96374; 96375; 96379; G0378; J2405; J3480; J7060

== ENCOUNTER 2017-11-02 22:27 | Emergency (ER) | payer OTHER, MEDICAID ==
[~2017-11-02] VITALS: Ht 165.1 cm; Wt 95.3 kg
[~2017-11-02 22:27] MED LIST changes: +DOXY100C2 PO; +POTA10TA34 PO
[2017-11-02 23:08] LABS: Eosinophils # (auto) 0.1 uL; Neutrophils # (auto) 5.6 uL
[2017-11-02 23:10] LABS: Basophils # (auto) 0 uL; Basophils % (auto) 0.5 % (0.0-2.0); Eosinophils % (auto) 1.4 % (0.0-7.0); Hematocrit 41.9 % (41.0-53.0); Lymphocytes # (auto) 1.9 uL; Lymphocytes % (auto) 22.5 % (10.0-50.0); Mean Corpuscular Hemoglobin 23.4 pg (28.0-32.0); Mean Corpuscular Hgb Conc. 33.3 g/dL (32.0-36.0); Mean Corpuscular Volume 70.4 fL (80.0-100.0); Monocytes # (auto) 0.8 uL; Monocytes % (auto) 9.1 % (0.0-12.0); Neutrophils % (auto) 66.5 % (37.0-80.0); Platelet Count (auto) 377 10^3/uL (140-450); Red Blood Cells 5.96 10^6/uL (4.5-5.90); Red Cell Distribution Width 17.8 % (11.8-14.3); White Blood Cell 8.4 10^3/uL (4.4-10.8)
[2017-11-02 23:22] LABS: INR 0.99 (0.9-1.15); Partial Thromboplastin Time 25.2 sec (22.64-33.71); Prothrombin Time 10.8 sec (9.37-12.3)
[2017-11-02 23:27] LABS: Alanine Aminotransferase 40 U/L (16-61); Albumin 3.3 g/dL (3.4-5.0); Anion Gap 9 (5-15); Aspartate Aminotransferase 20 U/L (15-37); BUN/Creatinine Ratio 47.4; Blood Urea Nitrogen 9 mg/dL (7-18); Calcium 8.4 mg/dL (8.5-10.1); Carbon Dioxide 19 mmol/L (21-32); Chloride 110 mmol/L (98-107); GFR African American 825 mL/min; GFR Non-African American 681 mL/min; Glucose 114 mg/dL (74-106); Potassium 3.3 mmol/L (3.5-5.1); Sodium 138 mmol/L (136-145)
[2017-11-02 23:31] LABS: Alkaline Phosphatase 108 U/L (45-117); Bilirubin, Total 0.3 mg/dL (0.2-1.0); Total Protein 6.9 g/dL (6.4-8.2)
[2017-11-03 00:05] VITALS: BP 146/66
[2017-11-03] MEDS: LEVOFLOXACIN 750MG 150 ML IV ONE (00:32)
[2017-11-03 01:30] VITALS: BP 146/66
[2017-11-03 02:32] VITALS: BP 108/72
[2017-11-03] MEDS: ONDANSETRON HCL 4 MG/2 ML VIAL IV ONE (02:46)
[2017-11-03] MEDS: MORPHINE SULFATE 4 MG/ML SYR/VIAL IV ONE (02:46)
== END 2017-11-03 03:14 | disposition home or self-care (01) ==
LOC: EDBD 22:27 → ER 22:34
DX: J95.03 Malfunction of tracheostomy stoma (principal); I10 Essential (primary) hypertension; J06.9 Acute upper respiratory infection, unspecified; Z46.82 Encounter for fitting and adjustment of non-vascular catheter
CPT/HCPCS: 36415; 71045; 80053; 84484; 85025; 85610; 85730; 87070; 87077; 87186; 87205; 93005; 96365; 96375; 99285; J1956; J2270; J2405; 94002

== ENCOUNTER 2018-03-21 14:33 | Inpatient (IN) | payer MEDICAID ==
[~2018-03-21] VITALS: Ht 165.1 cm; Wt 105.8 kg
[~2018-03-21 14:33] MED LIST changes: -POTA10TA34 PO; +POTA1TAB61 PO
[2018-03-21] MEDS ORDERED: SODIUM CHLORIDE 0.9% 1,000 ML IV ONE (14:55)
[2018-03-21] MEDS ORDERED: KETOROLAC TROMETH 30 MG/ML 1ML VIAL IV ONE (15:00)
[2018-03-21] MEDS ORDERED: ONDANSETRON HCL 4 MG/2 ML VIAL IV ONE (15:00)
[2018-03-21 16:54] LABS: Basophils # (auto) 0 uL; Basophils % (auto) 0.3 % (0.0-2.0); Eosinophils # (auto) 0 uL; Eosinophils % (auto) 0.1 % (0.0-7.0); Hemoglobin 13.9 g/dL (13.5-17.5); Lymphocytes # (auto) 0.6 uL; Monocytes # (auto) 0.4 uL
[2018-03-21 16:56] LABS: Hematocrit 42.3 % (41.0-53.0); Lymphocytes % (auto) 3.7 % (10.0-50.0); Mean Corpuscular Hemoglobin 23.6 pg (28.0-32.0); Mean Corpuscular Volume 71.5 fL (80.0-100.0); Monocytes % (auto) 2.8 % (0.0-12.0); Neutrophils # (auto) 14.4 uL; Neutrophils % (auto) 93.1 % (37.0-80.0); Platelet Count (auto) 360 10^3/uL (140-450); Red Blood Cells 5.91 10^6/uL (4.5-5.90); Red Cell Distribution Width 16.4 % (11.8-14.3); White Blood Cell 15.5 10^3/uL (4.4-10.8)
[2018-03-21 17:04] LABS: Alanine Aminotransferase 41 U/L (16-61); Albumin 3.8 g/dL (3.4-5.0); Alkaline Phosphatase 119 U/L (45-117); Anion Gap 14 (5-15); Aspartate Aminotransferase 25 U/L (15-37); BUN/Creatinine Ratio 73.3; Bilirubin, Total 0.4 mg/dL (0.2-1.0); Blood Urea Nitrogen 11 mg/dL (7-18); Calcium 8.5 mg/dL (8.5-10.1); Carbon Dioxide 17 mmol/L (21-32); Chloride 109 mmol/L (98-107); GFR African American 1073 mL/min; GFR Non-African American 887 mL/min; Glucose 96 mg/dL (74-106); Potassium 3.9 mmol/L (3.5-5.1); Sodium 140 mmol/L (136-145); Total Protein 7.8 g/dL (6.4-8.2)
[2018-03-21 17:05] LABS: Partial Thromboplastin Time 29.3 sec (23.78-33.04); Prothrombin Time 10.7 sec (9.27-12.13)
[2018-03-21] MEDS ORDERED: cefTRIAXone 1GM/10ml IVPUSH 10 ML IV ONE (17:30)
[2018-03-21 18:00] VITALS: BP 109/73
[2018-03-21] MEDS ORDERED: diphenhdrAMINE HCL 50 MG/1 ML VL IV ONE (19:30)
[2018-03-21] MEDS ORDERED: methylPREDNISolone SOD SUCC 125 MG/2 ML VL IV ONE (19:30)
[2018-03-21] MEDS ORDERED: ACETAMINOPHEN 650 mg PER 20 mL UD PO PRN (21:15)
[2018-03-21] MEDS ORDERED: LACTULOSE 20Gm/30ML SOLN PO PRN (21:15)
[2018-03-21] MEDS ORDERED: ONDANSETRON HCL 4 MG/2 ML VIAL IV PRN (21:15)
[2018-03-21] MEDS ORDERED: HYDROcodone-ACET 5/325MG TAB PO PRN (21:15)
[2018-03-21] MEDS: SODIUM CHLORIDE 0.9% 1,000 ML IV SCH (21:15)
[2018-03-21] MEDS ORDERED: MORPHINE SULF INJ 2 MG/ML SYRINGE 1ML ONE (22:13)
[2018-03-21 23:00] VITALS: BP 109/69
[2018-03-22] VITALS (7 sets, daily range): BP systolic 97–114; BP diastolic 54–73
[2018-03-22] MEDS: MORPHINE SULF INJ 2 MG/ML SYRINGE 1ML IV PRN ×6 (01:04→21:40)
[2018-03-22] MEDS: ALBUTEROL SULF 2.5 MG/0.5ML(0.5%) NEB SOLN NEB SCH ×4 (03:27→18:32)
[2018-03-22 05:58] LABS: Urine Bacteria FEW /hpf (None Seen); Urine Blood 3+ /uL (Negative); Urine Mucus FEW (None Seen); Urine Specific Gravity 1.021 (1.001-1.035); Urine WBC 1 /hpf (0 - 3)
[2018-03-22 06:56] LABS: Basophils # (auto) 0 uL; Eosinophils # (auto) 0 uL; Monocytes # (auto) 0.1 uL; Neutrophils # (auto) 8.4 uL; Nucleated Red Blood Cells % 0.1 %; White Blood Cell 9.2 10^3/uL (4.4-10.8)
[2018-03-22 06:58] LABS: Eosinophils % (auto) 0.1 % (0.0-7.0); Hematocrit 39.2 % (41.0-53.0); Hemoglobin 12.8 g/dL (13.5-17.5); Lymphocytes # (auto) 0.8 uL; Lymphocytes % (auto) 8.4 % (10.0-50.0); Mean Corpuscular Hemoglobin 23.4 pg (28.0-32.0); Mean Corpuscular Hgb Conc. 32.5 g/dL (32.0-36.0); Neutrophils % (auto) 90.5 % (37.0-80.0); Platelet Count (auto) 350 10^3/uL (140-450); Red Blood Cells 5.45 10^6/uL (4.5-5.90); Red Cell Distribution Width 17.2 % (11.8-14.3)
[2018-03-22 07:16] LABS: Anion Gap 14 (5-15); Blood Urea Nitrogen 11 mg/dL (7-18); Carbon Dioxide 15 mmol/L (21-32); Chloride 110 mmol/L (98-107); Glucose 141 mg/dL (74-106); Potassium 3.2 mmol/L (3.5-5.1); Sodium 139 mmol/L (136-145)
[2018-03-22 07:22] LABS: BUN/Creatinine Ratio 73.3; GFR African American 1073 mL/min; GFR Non-African American 887 mL/min
[2018-03-22] MEDS: DULoxetine HCL 30 MG CAP PO SCH (09:18)
[2018-03-22] MEDS: PANTOPRAZOLE 40 MG/10 ML VIAL IV SCH (09:18)
[2018-03-22] MEDS: ENOXAPARIN SOD 40 MG/0.4 ML SYRINGE SC SCH (09:18)
[2018-03-22] MEDS: SODIUM CHLORIDE 0.9% 1,000 ML IV SCH (09:19)
[2018-03-22] MEDS: METOPROLOL TARTRATE 25 MG TAB PO SCH (09:19)
[2018-03-22] MEDS ORDERED: POTASSIUM EFFERVESENT TAB 25 MEQ PO ONE ×2 (11:00→19:00)
[2018-03-22] MEDS: SODIUM BICARBONATE 50ML VIAL 50 ML in SOD CHL 0.45% 1,000 ML IV SCH ×2 (12:31→21:38)
[2018-03-22] MEDS: TAMSULOSIN HYDROCHLORIDE 0.4 MG CAP PO SCH (17:45)
[2018-03-22] MEDS: cefTRIAXone 1GM/10ml IVPUSH 10 ML IV SCH ×3 (21:40→21:56)
[2018-03-23] MEDS: ALBUTEROL SULF 2.5 MG/0.5ML(0.5%) NEB SOLN NEB SCH ×4 (00:16→18:35)
[2018-03-23] MEDS: MORPHINE SULF INJ 2 MG/ML SYRINGE 1ML IV PRN ×6 (01:41→23:30)
[2018-03-23 05:12] VITALS: BP 128/74
[2018-03-23 06:27] LABS: Basophils # (auto) 0 uL; Basophils % (auto) 0.3 % (0.0-2.0); Eosinophils # (auto) 0.1 uL; Eosinophils % (auto) 0.6 % (0.0-7.0); Lymphocytes % (auto) 19.7 % (10.0-50.0); Nucleated Red Blood Cells % 0.1 %; Red Blood Cells 5.37 10^6/uL (4.5-5.90)
[2018-03-23 06:31] LABS: Hematocrit 38.7 % (41.0-53.0); Hemoglobin 12.5 g/dL (13.5-17.5); Lymphocytes # (auto) 2.1 uL; Mean Corpuscular Hemoglobin 23.3 pg (28.0-32.0); Mean Corpuscular Hgb Conc. 32.4 g/dL (32.0-36.0); Monocytes # (auto) 1.1 uL; Monocytes % (auto) 9.7 % (0.0-12.0); Neutrophils # (auto) 7.6 uL; Neutrophils % (auto) 69.7 % (37.0-80.0); Platelet Count (auto) 333 10^3/uL (140-450); Red Cell Distribution Width 16.7 % (11.8-14.3); White Blood Cell 10.9 10^3/uL (4.4-10.8)
[2018-03-23 06:46] LABS: Anion Gap 11 (5-15); Blood Urea Nitrogen 7 mg/dL (7-18); Calcium 7.9 mg/dL (8.5-10.1); Carbon Dioxide 23 mmol/L (21-32); Chloride 107 mmol/L (98-107); Glucose 102 mg/dL (74-106); Potassium 3.7 mmol/L (3.5-5.1); Sodium 141 mmol/L (136-145)
[2018-03-23 07:00] LABS: BUN/Creatinine Ratio 46.7; GFR African American 1073 mL/min; GFR Non-African American 887 mL/min
[2018-03-23] MEDS: SODIUM BICARBONATE 50ML VIAL 50 ML in SOD CHL 0.45% 1,000 ML IV SCH ×2 (08:00→18:10)
[2018-03-23 09:00] VITALS: BP 102/52
[2018-03-23] MEDS: PANTOPRAZOLE 40 MG/10 ML VIAL IV SCH (09:56)
[2018-03-23] MEDS: METOPROLOL TARTRATE 25 MG TAB PO SCH (09:57)
[2018-03-23] MEDS: ENOXAPARIN SOD 40 MG/0.4 ML SYRINGE SC SCH (10:00)
[2018-03-23] MEDS: DULoxetine HCL 30 MG CAP PO SCH (10:00)
[2018-03-23 13:28] VITALS: BP 121/68
[2018-03-23 17:16] VITALS: BP 119/72
[2018-03-23] MEDS: TAMSULOSIN HYDROCHLORIDE 0.4 MG CAP PO SCH (18:10)
[2018-03-23 22:11] VITALS: BP 94/57
[2018-03-23] MEDS ORDERED: DOCUSATE SOD 100 MG CAP PO PRN (22:15)
[2018-03-24] MEDS: ALBUTEROL SULF 2.5 MG/0.5ML(0.5%) NEB SOLN NEB SCH ×3 (00:36→12:00)
[2018-03-24] MEDS: MORPHINE SULF INJ 2 MG/ML SYRINGE 1ML IV PRN ×4 (03:52→17:43)
[2018-03-24] MEDS: SODIUM BICARBONATE 50ML VIAL 50 ML in SOD CHL 0.45% 1,000 ML IV SCH ×2 (03:53→15:30)
[2018-03-24 04:58] VITALS: BP 118/64
[2018-03-24 05:57] LABS: Basophils # (auto) 0 uL; Eosinophils # (auto) 0.1 uL; Hemoglobin 12.1 g/dL (13.5-17.5); Lymphocytes # (auto) 2.7 uL; Monocytes # (auto) 0.4 uL; Neutrophils # (auto) 4.5 uL; Red Cell Distribution Width 16.9 % (11.8-14.3)
[2018-03-24 06:00] LABS: Basophils % (auto) 0.6 % (0.0-2.0); Eosinophils % (auto) 1.6 % (0.0-7.0); Hematocrit 37.1 % (41.0-53.0); Lymphocytes % (auto) 34.2 % (10.0-50.0); Mean Corpuscular Hemoglobin 23.6 pg (28.0-32.0); Mean Corpuscular Hgb Conc. 32.6 g/dL (32.0-36.0); Mean Corpuscular Volume 72.3 fL (80.0-100.0); Monocytes % (auto) 5.3 % (0.0-12.0); Neutrophils % (auto) 58.3 % (37.0-80.0); Nucleated Red Blood Cells % 0.2 %; Platelet Count (auto) 294 10^3/uL (140-450); Red Blood Cells 5.12 10^6/uL (4.5-5.90); White Blood Cell 7.8 10^3/uL (4.4-10.8)
[2018-03-24 06:14] LABS: BUN/Creatinine Ratio 52.4; Calcium 7.8 mg/dL (8.5-10.1); Potassium 3.8 mmol/L (3.5-5.1)
[2018-03-24 08:46] VITALS: BP 120/60
[2018-03-24] MEDS: DULoxetine HCL 30 MG CAP PO SCH (10:00)
[2018-03-24] MEDS ORDERED: LEVOFLOXACIN 500MG 100 ML IV SCH (10:00)
[2018-03-24] MEDS: ENOXAPARIN SOD 40 MG/0.4 ML SYRINGE SC SCH (10:00)
[2018-03-24] MEDS: PANTOPRAZOLE 40 MG/10 ML VIAL IV SCH (10:05)
[2018-03-24] MEDS: METOPROLOL TARTRATE 25 MG TAB PO SCH (10:06)
[2018-03-24 12:56] VITALS: BP 96/71
[2018-03-24 17:02] VITALS: BP 119/78
[2018-03-24] MEDS: TAMSULOSIN HYDROCHLORIDE 0.4 MG CAP PO SCH (17:55)
[2018-03-24 18:03] VITALS: BP 119/78
== END 2018-03-24 20:00 | disposition home or self-care (01) | DRG 720 ==
LOC: EDBD 14:33 → ER 14:33 → TELE 14:35 → TELE-WESTW 22:49
PROVIDERS: ADMIT Nurse Practitioner Family; ATTEND Internal Medicine
PROC: 5A1945Z Respiratory Ventilation, 24-96 Consecutive Hours (ICD-10-PCS; principal; 2018-03-21)
DX: A41.9 Sepsis, unspecified organism (principal); N17.0 Acute kidney failure with tubular necrosis; G71.0 Muscular dystrophy; E87.2 Acidosis; J96.10 Chronic respiratory failure, unspecified whether with hypoxia or hypercapnia; Z93.0 Tracheostomy status; M41.9 Scoliosis, unspecified; N13.6 Pyonephrosis; E87.6 Hypokalemia; Z83.3 Family history of diabetes mellitus; I10 Essential (primary) hypertension; Z82.49 Family history of ischemic heart disease and other diseases of the circulatory system; J98.11 Atelectasis; Z74.01 Bed confinement status; Z79.899 Other long term (current) drug therapy; Z88.8 Allergy status to other drugs, medicaments and biological substances
CPT/HCPCS: 36415; 51702; 71045; 74176; 80048; 80053; 81001; 83605; 83880; 84484; 85025; 85610; 85730; 87040; 87070; 87077; 87086; 87088; 87186; 87205; 94002; 94003; 94640; 96374; 96375; A4605; C9113; J0696; J1885; J1956; J2405

== ENCOUNTER 2018-12-30 13:54 | Emergency (ER) | payer MEDICAID ==
[~2018-12-30] VITALS: Ht 142.2 cm; Wt 90.7 kg
[~2018-12-30 13:54] MED LIST changes: +ALBU0.084; -DOXY-216 PO; -DOXY100C2 PO; -GABA300C10 PO; -HYDR-4683 PO; -LEVO750T2 PO; -POTA10SO11 PO
[2018-12-30] MEDS ORDERED: SODIUM CHLORIDE 0.9% 1,000 ML IV ONE (16:14)
[2018-12-30 16:47] LABS: Urine Bacteria NONE SEEN /hpf (None Seen); Urine Blood Negative /uL (Negative); Urine Mucus FEW (None Seen); Urine Specific Gravity 1.017 (1.001-1.035); Urine WBC 1 /hpf (0 - 3)
[2018-12-30 18:20] LABS: Basophils # (auto) 0.1 uL; Basophils % (auto) 1.2 % (0.0-2.0); Eosinophils # (auto) 0.2 uL; Hemoglobin 13.4 g/dL (13.5-17.5); Lymphocytes # (auto) 2.2 uL; Mean Corpuscular Hemoglobin 23.2 pg (28.0-32.0); Monocytes # (auto) 0.4 uL
[2018-12-30 18:27] LABS: Hematocrit 41.9 % (41.0-53.0); Lymphocytes % (auto) 25.5 % (10.0-50.0); Mean Corpuscular Hgb Conc. 31.9 g/dL (32.0-36.0); Mean Corpuscular Volume 72.6 fL (80.0-100.0); Monocytes % (auto) 4.4 % (0.0-12.0); Neutrophils # (auto) 5.9 uL; Neutrophils % (auto) 66.9 % (37.0-80.0); Nucleated Red Blood Cells % 0.1 %; Platelet Count (auto) 342 10^3/uL (140-450); Red Blood Cells 5.78 10^6/uL (4.5-5.90); Red Cell Distribution Width 15.5 % (11.8-14.3); White Blood Cell 8.8 10^3/uL (4.4-10.8)
[2018-12-30 18:28] LABS: BUN/Creatinine Ratio 38.9; Calcium 8.3 mg/dL (8.5-10.1); Magnesium 2.3 mg/dL (1.6-2.6); Potassium 4.1 mmol/L (3.5-5.1)
[2018-12-30] MEDS ORDERED: AZITHROMYCIN 500MG/ 250ML 250 ML IV ONE (20:45)
[2018-12-30] MEDS ORDERED: HYDROcodone-ACET 5/325MG TAB PO ONE (21:00)
[2018-12-30] MEDS ORDERED: ACETAMINOPHEN 325 MG TAB PO PRN (21:30)
[2018-12-30] MEDS ORDERED: ALBUTEROL SULF 2.5 MG/0.5ML(0.5%) NEB SOLN NEB PRN (21:30)
[2018-12-30] MEDS ORDERED: HYDROcodone-ACET 5/325MG TAB PO PRN (21:30)
[2018-12-30] MEDS ORDERED: SODIUM CHLORIDE 0.9% 1,000 ML IV SCH (21:30)
[2018-12-30] MEDS ORDERED: LEVOFLOXACIN 500MG 100 ML IV ONE (21:30)
[2018-12-30] MEDS ORDERED: ONDANSETRON HCL 4 MG/2 ML VIAL IV PRN (21:30)
[2018-12-30] MEDS ORDERED: TEMAZEPAM 15 MG CAP PO PRN (21:30)
[2018-12-30] MEDS ORDERED: FAMOTIDINE 20 MG TAB PO SCH (22:00)
[2018-12-30] MEDS ORDERED: METOPROLOL TARTRATE 25 MG TAB PO SCH (22:00)
[2018-12-30] MEDS ORDERED: BUDESONIDE (INHALATION) 0.5 MG/2 ML NEB NEB SCH (22:00)
[2018-12-30 23:16] VITALS: BP 138/90
[2018-12-31] MEDS ORDERED: CALCIUM CARB 500 MG CHEW TAB PO ONE (00:15)
[2018-12-31] MEDS ORDERED: ALBUTEROL SULF 2.5 MG/0.5ML(0.5%) NEB SOLN ONE (00:24)
[2018-12-31] MEDS ORDERED: IPRATROPIUM BROM 0.5 MG/2.5ML INH SOL ONE (00:24)
[2018-12-31] MEDS ORDERED: diphenhdrAMINE HCL 50 MG/1 ML VL IV ONE (00:30)
[2018-12-31] MEDS ORDERED: IPRATROPIUM BROM 0.5 MG/2.5ML INH SOL NEB ONE (00:30)
[2018-12-31] MEDS ORDERED: ALBUTEROL SULF 2.5 MG/0.5ML(0.5%) NEB SOLN NEB ONE (00:30)
[2018-12-31] MEDS ORDERED: HYDROcodone-ACET 5/325MG TAB PO ONE (05:45)
[2018-12-31] MEDS ORDERED: LEVOFLOXACIN 500MG 100 ML IV SCH (10:00)
[2018-12-31] MEDS ORDERED: ENOXAPARIN SOD 40 MG/0.4 ML SYRINGE SC SCH (10:00)
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
--- NOTE | 2018-12-31 14:46 | NUR ---
WOUND CARE NOTE: ORDERED [facility] AT THIS TIME. PATIENT TO BE PLACED, PENDING DELIVERY BY RONNY GARCIA. ETA: 20:30
[2018-12-31] MEDS: HYDROcodone-ACET 10/325MG TAB PO PRN (18:02)
[2019-01-01] MEDS ORDERED: ZOLPIDEM TARTRATE 5 MG TAB PO ONE (00:45)
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
[2019-01-01 15:52] VITALS: BP 105/60
[2019-01-01] MEDS: HYDROcodone-ACET 10/325MG TAB PO PRN (15:57)
== END 2019-01-01 16:50 | disposition home or self-care (01) ==
LOC: EDBD 13:54 → ER 14:02
DX: J96.10 Chronic respiratory failure, unspecified whether with hypoxia or hypercapnia (principal); G71.00 Muscular dystrophy, unspecified; M41.9 Scoliosis, unspecified; J20.9 Acute bronchitis, unspecified; J45.909 Unspecified asthma, uncomplicated; F32.9 Major depressive disorder, single episode, unspecified; I10 Essential (primary) hypertension; Z87.442 Personal history of urinary calculi; Z88.1 Allergy status to other antibiotic agents
CPT/HCPCS: 36415; 71045; 80048; 81001; 83735; 85025; 87070; 87077; 87186; 87205; 96365; 96366; 96367; 96375; 99284; A4605; J0456; J1200; J1956; J7030; J7611; J7644; 94002; 94003

== ENCOUNTER 2020-01-12 12:20 | Emergency (ER) | payer MEDICAID ==
[~2020-01-12] VITALS: Ht 167.6 cm; Wt 90.7 kg
[2020-01-12] MEDS ORDERED: EPINEPHrine HCL 1 MG/10 ML SYRG IV ONE (12:21)
== END 2020-01-12 12:22 | disposition home or self-care (01) ==
LOC: EDBD 12:20 → ER 12:20
DX: I46.9 Cardiac arrest, cause unspecified (principal); J96.10 Chronic respiratory failure, unspecified whether with hypoxia or hypercapnia; J45.909 Unspecified asthma, uncomplicated; I10 Essential (primary) hypertension; Z88.1 Allergy status to other antibiotic agents
CPT/HCPCS: 92950; 99285; J0171